=== PATIENT | female | born 2005 | race Caucasian/White ===

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

== ENCOUNTER 2025-02-19 13:06 | Emergency (ER) | payer OTHER, SELFPAY ==
[2025-02-19] VITALS (11 sets, daily range): BP systolic 106–127; BP diastolic 73–81; PULSE 83–96; RESP 16; TEMP 36.1; O2SAT 98–100; BMI 23.7
--- OUTSIDE RECORDS SUMMARY | 2025-02-19 13:09 | XMS_ITS | Clinical Summary ---
Author Organization [facility] Address [address] [place] [address] Care Team Providers Care Ham Curer Name Role Phone Yi Barboza APRN, JOEL Primary Care [place] Unavailable Source Comments You are receiving this document as you are listed as the primary care provider,follow-up provider, or the patient has been referred to you for consultation.This is in compliance with the Medicare and[facility] EHR Incentive Program,which states Providers who transition their patient to another setting of careor provider of care or refers their patient to another provider of care shouldprovide summary care record for each transition of care or referral. [facility] Allergies No known active allergies Medications OXcarbazepine (TRILEPTAL) 300 MG tablet Take 600 mg by mouth two times a day. 03/04/2022 Active HYDROcodone-andrea taminophen (NORCO) 5-325 MG tabletIndicatio ns:Pain due to bone fixation device, subsequent encounter (HRC) Take 1-2 Tablets by mouth every 6 hours as needed for Pain. 5 Tablet 04/07/2022 Active HYDROcodone-andrea taminophen (NORCO) 5-325 MG tabletIndicatio ns:Pain due to bone fixation device, subsequent encounter (HRC) Take 1-2 Tablets by mouth every 6 hours as needed for Pain. 5 Tablet 04/07/2022 Active Active Problems Problem Noted Date Diagnosed Date Postop check 04/30/2022 Pain in bone fixation device 03/31/2022 Closed displaced fracture of middle phalanx of right little finger 03/10/2022 Closed traumatic dislocation of proximal interphalangeal (PIP) joint of right little finger 03/10/2022 Social History Tobacco Use Types Packs/Day Years Used Date Smoking Tobacco: Never Smokeless Tobacco: Never Tobacco Cessation:Counseling Given: Not Answered Alcohol Use Standard Drinks/Week Comments Never 0 (1 standard drink = 0.6 oz pur e alcohol) Comments Unknown Sex and Gender Information Value Date Recorded Sex Assigned at Not on file Legal Sex Female 8:00 AM CDT Gender Identity Not on file Sexual Orientation Not on file Last Filed Vital Signs Vital Sign Reading Time Taken Comments Blood Pressure 102/59 03/17/2022 3:30 PM CDT Pulse 71 03/17/2022 3:30 PM CDT Temperature 36.7 C (98.1 F) 03/17/2022 3:17 PM CDT Respiratory Rate 16 03/17/2022 3:30 PM CDT Oxygen Saturation 95% 03/17/2022 3:30 PM CDT Inhaled Oxygen Concentration - - Weight 64.9 kg (143 lb) 03/17/2022 11:09 AM CDT Height 165.1 cm (5' 5) 03/17/2022 11:09 AM CDT Body Mass Index 23.8 03/17/2022 11:09 AM CDT Body Mass Index Percentile 80.03% 03/17/2022 11: 09 AM CDT Growth Chart: CDC (Girls, 2- 20 Years) Plan of Treatment Health Maintenance Due Date Last Done Comments Chlamydia 2005 Hep C Screening (Preventive Services) 2005 MenB Immunization Discussion 2005 HGB 2017 HIV Screening (Preventive Services) 2021 Adult Preventive Visit 12/05/2023 HepB Vaccine (1) 2024 COVID-19 Vaccine ( season) 2025 01/22/2021, 01/01/2021 Influenza Vaccine (#1) 2025 DTaP/Tdap/Td Vaccine (7 - Tdap) 09/01/2027 08/31/2017, 12/05/2009, 12/05/2009, Additional history exists Zoster/Shingles Vaccine (1 of 2) 12/05/2055 Hib Vaccine Aged Out 06/10/2006, 04/17, 03/02/2006 No longer eligible based on patient's age to complete this topic IPV (Polio) Vaccine Completed 08/31/2017, 06/10/2006, 05/07/2006, Additional history exists HPV Vaccine Completed 09/12/2018, 08/31/2017 HepA Vaccine Completed 09/12/2018, 08/31/2017 MCV4 Vaccine Completed 01/27/2022, 08/15, 08/31/2017 Pneumococcal Vaccine Aged Out No long er eligible based on patient's age to complete this topic Medical Devices Implanted Type Area [employer] Device Identifier Shelf Expiration Date Model / Serial / Lot K-Wire Gde .054mm [facility] - [id number] Implanted:Qty: 1 on 03/17/2022 by Garfield Thompson MD at [facility] Right: FINGER [employer] 07/08/2025 [id number] / 0 / [id number] [employer]gan .065 Dean - [id number] Implanted:Qty: 1 on 03/17/2022 by Garfield Thompson MD at [facility] Right: FING[employer] [id number] / [id number] / 0 Description:On end of wire o utside of finger Insurance [facility] [address] [address] EMERGENCY MEDICAL ASSISTANCE Advance Directives * Full Code (Latest Code Status on File) Date Activated Date Inactivated Comments 03/17/2022 12:21 PM 03/17/2022 5:45 PM Care Teams Ham Curer Relationship Specialty Start Date End Date Yi Barboza APRN, STAVE GRADER PCP - General Nurse Practitioner 02/16/22
--- OUTSIDE RECORDS SUMMARY | 2025-02-19 13:10 | XMS_ITS | Clinical Summary ---
Author Organization [facility] Address [address] [place] [id number] Care Team Providers Care Manufacturing Supervisor 2Nd Shift Name Role Phone Jacqueline Acosta MD Primary Care [place] [place] Allergies No known active allergies Medications OXcarbazepine (TRILEPTAL) 300 mg tablet Take 600 mg by mouth 2 times daily. 09/23/2021 Active Active Problems Problem Noted Date Diagnosed Date Recurrent major depressive disorder, in partial remission 11/22/2018 Generalized anxiety disorder 11/22/2018 Seizures 05/17/2016 Immunizations Immunization Administration Dates Next Due BCG Vaccine (Percutaneous) 01/15/2006 COVID-19 vaccine ([email or web address] Textbook Time NTSnapjoy 30mcg/0.3mL) LEVON JAQUEZ 01/22/2021,01/01/2021 Dtap Unspecified Formulation 12/05/2009, 12/26/2007,06/10/2006,05/07,03/02/2006 HPV 9 (Gardasil 9) 09/12/2018,08/31/2017 Hepatitis A (Peds) 09/12/2018,08/31/2017 Hepatitis B (Peds) 08/31/2017, 7,05/07/2006,03/02 Hib Conjugate, Unspecified 06/10/2006,05/07/2006 ,03/02/2006 Inactivated Polio Vaccine 08/31/2017,,05/07/2006,03/02 MENINGOCOCCAL VACCINE 2 VIAL [id number] (MENVEO) 08/31/2017 MMR 02/25/2017,05/23/2010 Tdap 08/31/2017 Tdap, Unspecified 12/05/2009, 8,06/10/2006,05/07,03/02/2006 Varicella Vaccine 11/30/2017,08/31/2017 Family History Medical History Relation Name Comments No Known Problems Father No Known Problems Mother Relation Name Status Comments Father Mother Social History Tobacco Use Types Packs/Day Years Used Date Smoking Tobacco: Never Smokeless Tobacco: Never Tobacco Cessation:Counseling Given: Yes Comments:no exposure Alcohol Use Standard Drinks/Week Comments No 0 (1 standard drink = 0.6 oz pur e alcohol) PHQ-2 Answer Date Recorded PHQ-2 TOTAL SCORE 3 10/14/2021 Social Connections Answer Date Recorded Frequency of Communication with Friends and Fami ly Not on file 10/14/2021 Comments No Sex and Gender Information Value Date Recorded Sex Assigned at Not on file Legal Sex Female 3:33 PM PERINATAL COORDINATOR Gender Identity Not on file Sexual Orientation Not on file Obstetrics History Para Term AB IAB SAB Ectopic Multiple Livin g Live Births 0 0 0 0 0 0 0 0 0 0 0 Last Filed Vital Signs Vital Sign Reading Time Taken Comments Blood Pressure 98/68 10/14/2021 2:01 PM CDT Pulse 80 10/14/2021 2:01 PM CDT Temperature 37.3 C (99.2 F) 10/05/2018 1:39 PM CDT Respiratory Rate - - Oxygen Saturation 98% 10/05/2018 1:39 PM CDT Inhaled Oxygen Concentration - - Weight 66.4 kg (146 lb 4.8 oz) 10/14/2021 2:01 P M CDT Height 153 cm (5' 0.24) 10/05/2018 1:39 PM CDT Body Mass Index - - Plan of Treatment Health Maintenance Due Date Last Done Comments Well Child Check for age 3-20 11/04/2008 HIV for age 15-65 2020 Depression screening for age 12+ 10/14/2022 10/14/2021, 05/01/2019, 03/31/2019, Additional history exists BMI (ht and wt on same day) for age 18+ 12/05/2023 Hepatitis C screening for age 18-79 12/05/2023 COVID-19 vaccine series (2024- season) 2025 01/22/2021, 01/01/2021 Influenza Vaccine (#1) 2025 Tetanus booster 09/01/2027 08/31/2017, 11/15, 12/26/2007, Additional history exists RSV vaccine for adults or (1 - 1-dose 75+ series) 2080 Hepatitis B series for 19+ Completed 08/31, 06/10/2006, 05/07/2006, Additional history exists Meningococcal series for age 11-21 Aged Out 08/31/2017 No longer eligible based on patient's age to complete this topic HPV series for age 9-45 Completed 09/12/2018, 08/31 Pneumococcal series for age 6-49 Aged Out No longer eligible based on patient's age to complete this topic Care Teams Manufacturing Supervisor 2Nd Shift Relationship Specialty Start Date End Date Jacqueline Acosta MD [address] [place] [id number] PCP - General Family Practice 10/14/21
--- NOTE | 2025-02-19 13:27 | ED_ITS ---
HPI - Seizure General Date Seen: 02/19/25 Chief Complaint: Seizure Stated Complaint: seizure Time Seen by Provider: 02/19/25 13:27 Source: patient, EMS and RN notes reviewed Mode of arrival: ambulatory Limitations: no limitations History of Present Illness HPI Narrative: Cj is a very pleasant 19-year-old female with a history of seizures starting at the age of 9, seizure free for the last 2 years who comes to the emergency room via EMS after having been found down in the bathroom having a seizure. Patient notes that she was at work at a [employer] office in [place] when she ?felt funny? and went to the bathroom. She does not remember anything after that until she woke up in the bathroom with a lot of people surrounding her. She did have blood on her shirt from biting her tongue on the right. Her mother is present. They wonder if this is increased stress from the job. She is not currently on any antiseizure medication. In fact, she took herself off of it in the last 2 years. Ironically she has a follow-up appointment with her neurologist tomorrow. Denies any head pain and neck pain. Did not have any incontinence. Denies chest pain shortness of breath. In regards to her ?aura? she notes that she just does not feel right. She cannot describe any particular change in her vision, hearing or sense of smell. Upon further discussion patient's mom notes that her daughter had ?flu? on Wednesday or 48 hours ago in which she had a cough. This has improved. She never had a fever. She did not test for COVID. She denies shortness of breath or chest pain. Seizure History: Yes Related Data Home Medications ?Medication ?Instructions ?Recorded ?Confirmed oxcarbazepine 300 mg tablet 300 mg PO BID 01/02/2211/08 Previous Rx's ?Medication ?Instructions ?Recorded ondansetron 8 mg disintegrating 8 mg PO TID PRN nausea and 09/22/22 tablet vomiting #10 tabs Allergies Allergy/AdvReac Type Severity Reaction Status Date / Time No Known Drug Allergies Allergy Unknown Unknown Uncoded 01/02/22 10:01 Review of Systems Status of ROS: Reports: 10 or more systems reviewed and unremarkable except as noted in History and below Narrative: Denies possibility of Const: Denies: fever or chills Eyes: Denies: change in vision or blurry vision ENMT: Denies: neck pain or nasal congestion Cardio: Denies: chest pain, swelling of feet/ankles or shortness of breath with exertion Resp: Reports: cough; Denies: shortness of breath GI: Denies: abdominal pain, nausea, vomiting or diarrhea : Denies: painful urination or urinary frequency Musculo: Denies: back pain, neck pain or extremity pain Neuro: Denies: headache, numbness in extremities, weakness in extremities or slurred speech PFSH [facility] Medical History Anxiety ?F41.9 - Anxiety disorder, unspecified (ICD-10) Seizures ?R56.9 - Unspecified convulsions (ICD-10) Family History Other Diabetes Social History Smoking Status: Never smoker Exam Narrative: Exam Narrative: Alert and oriented. Nontoxic in appearance. EOM is full and pupils equal round and reactive. Head is atraumatic normocephalic. Neck is supple. No midline cervical tenderness and range of motion is full. Heart with regular rate and rhythm and lungs are clear. Abdomen soft nontender. Pelvis stable. Palpation on extremities with no tenderness. Lower extremities without edema or erythema. Moving all extremities without difficulty. Const: Vital Signs, click to edit/add: Vital Signs - 24 hr 02/19/25 13:14 Temperature 97.0 F L Pulse Rate [Pulse Oximeter] 91 Respiratory Rate 16 Blood Pressure [Ri ght Upper Arm] 127/81 Pulse Oximetry 99 Oxygen Delivery Me thod Room Air Documenting provider has reviewed patient's vital signs: yes Course Course ED Course: Differential diagnosis includes but is not limited to seizure, arrhythmia, vasovagal affect, electrolyte disturbance, , UTI, COVID. Patient will have an IV placed. Labs will include CBC, comprehensive, urinalysis, hCG, drug screen, EKG. Will speak to her neurology group when these labs have been returned. Vital Signs Vital signs: Initial Vital Signs Temperature 97.0 F L 02/19/25 13:14 Temperature Source Temporal Artery Scan 02/19/25 13:14 Pulse Rate 91 02/19/25 13:14 Respiratory Rate 16 02/19/25 13:14 Blood Pressure 127/81 02/19/25 13:14 Blood Pressure Mean 96 02/19/25 13:14 Blood Pressure Position Sitting 02/19/25 13:14 Pulse Oximetry 99 02/19/25 13:14 Oxygen Delivery Method Room Air 02/19/25 13:14 Vital Signs Temperature 97.0 F L 02/19/25 13:14 Pulse Rate 91 02/19/25 13:14 Respiratory Rate 16 02/19/25 13:14 Blood Pressure 127/81 02/19/25 13:14 Pulse Oximetry 99 02/19/25 13:14 Oxygen Delivery Method Room Air 02/19/25 13:14 Temperature 97.0 F L 02/19/25 13:14 Pulse Rate 91 02/19/25 13:14 Respiratory Rate 16 02/19/25 13:14 Blood Pressure 127/81 02/19/25 13:14 Pulse Oximetry 99 02/19/25 13:14 Oxygen Delivery Method Room Air 02/19/25 13:14 MDM - Seizure MDM Narrative Medical decision making narrative: 1. Seizure-likely consequence of not using anti seizure medications. Had the pleasure of speaking to neurologist and patient is instructed to return to her dose of Trileptal 900 mg p.o. b.i.d.. She does a follow-up appointment with neurology this week that I heavily encouraged her to keep. Also at this time she should not be driving and she states that she is not. No evidence of underlying infection, cardiac arrhythmia or electrolyte abnormality. 2. Disposition-home at this time with mom. They both feel comfortable going home. In a review of laboratory values patient has a normal white count electrolyte panel with normal creatinine potassium and sodium and a negative COVID test. Urinalysis with no evidence of UTI and she has a negative test. Medical Records Attestation: I reviewed the patient's medical records. Lab Data Attestation: I reviewed the patient's lab results. Labs: Lab Results 02/19/25 02/19/25 Range/Units 13:47 13:55 WBC 5.49 (4.50-11.00) K/uL RBC 4.11 (4.00-5.20) m/uL Hgb 12.0 (12.0-16.0) gm/dL Hct 36.4 (33.0-51.0) % MCV 89 (80-100) fL MCH 29 (26-34) pg MCHC 33 (32-36) gm/dL RDW Coeff of [place] 12.7 (11.5-15.5) % Plt Count 214 (140-440) K/uL Neut % (Auto) 74.3 H (42.0-72.0) % Lymph % (Auto) 17.9 L (20-44) % [place] % (Auto) 6.9 (0.0-11.0) % Eos % (Auto) 0.2 (0.0-7.0) % Baso % (Auto) 0.5 (0.0-3.0) % Neut # (Auto) 4.10 (1.7-7.0) K/uL Lymph # (Auto) 1.00 (0.90-2.90) K/uL [place] # (Auto) 0.40 (0.00-0.90) K/UL Eos # (Auto) 0.01 (0.00-0.50) K/uL Baso # (Auto) 0.03 (0.00-0.30) K/uL Abs Immat Gran (auto) 0.01 (0.00-0.30) K/uL Imm/Tot Granulo (auto) 0.2 % Sodium 136 (135-149) mmol/L Potassium 4.0 (3.6-5.1) mmol/L Chloride 105 (96-114) mmol/L Carbon Dioxide 26 (20-32) mmol/L Anion Gap 5 L (7-15) mEq/L BUN 7 (5-24) mg/dL Creatinine 0.6 (0.6-1.2) mg/dL Estimated Creat Clear 124.75 Estimated GFR 133 ml/min Glucose 96 (60-115) mg/dL Calcium 9.3 (8.7-10.8) mg/dL Total Bilirubin 0.4 (0.1-1.5) mg/dL AST 37 H (12-35) U/L ALT 30 (4-35) U/L Alkaline Phosphatase 69 (40-150) U/L Total Protein 8.0 (6.0-8.3) g/dL Albumin 4.6 (3.3-5.0) g/dL Urine Color Yellow (Yellow) Urine Appearance Clear (Clear) Urine pH 6.0 (5.0-8.5) Ur Specific [place] 1.020 (1.000-1.030) Urine Protein Trace A (Negative) Urine Glucose (UA) Negative (Negative) Urine Ketones Negative (Negative) Urine Blood Trace-intact A (Negative) Urine Nitrite Negative (Negative) Urine Bilirubin Negative (Negative) Urine Urobilinogen 0.2 (0.2-1.0) Ur Leukocyte Esterase Negative (Negative) Urine RBC 0-2 (0-2) Urine WBC 0-2 (0-5) Ur Squamous Epith Cells Many A (None-Few) Urine Bacteria None (None) Urine HCG, Qual Negative (Negative) Urine Opiates Screen Negative (Negative) Ur Oxycodone Screen Negative (Negative) Urine Methadone Screen Negative (Negative) Ur Barbiturates Screen Negative (Negative) U Tricyclic Antidepress Negative (Negative) Ur Phencyclidine Scrn Negative (Negative) Ur Amphetamines Screen Negative (Negative) U Methamphetamines Scrn Negative (Negative) U Benzodiazepines Scrn Negative (Negative) Urine Cocaine Screen Negative (Negative) U Marijuana (THC) Screen POSITIVE A (Negative) Ur Drug Screen Comment See Note SARS-CoV-2 (PCR) Negative SARS-CoV-2 (Negative) ECG Data Attestation: I personally reviewed and interpreted this ECG as follows: ECG interpretation date: 02/19/25 Interpretation: EKG by my read shows sinus rhythm at a rate of 83. She does have T-wave inversions in V1 to 3 but no evidence of ischemia. WI intervals and QT intervals within normal limits. Discharge Plan Discharge Clinical Impression: Epileptic seizure Patient Disposition: Home w/ Parent or Adult Condition: Improved Additional Instructions: Restart your medication oxcarbamazepine 900 mg twice a day. Follow-up with your neurologist as previously scheduled Please do not drive at this time. Return to the emergency room for worsening symptoms. Prescriptions: No Action oxcarbazepine 300 mg tablet 300 mg PO BID ondansetron 8 mg tablet,disintegrating 8 mg PO TID PRN (Reason: nausea and vomiting) Qty: 10 0RF Follow Up/Referrals: Provider,Not a Local [Primary Care Provider, Family Practice] Stand Alone Forms: Good [employer]s Info Instructions
[2025-02-19 14:00] LABS: Hematocrit* 36.4 % (33.0-51.0); Hemoglobin* 12.0 gm/dL (12.0-16.0); Immature Granulocytes Abs Auto 0.01 K/uL (0.00-0.30); Immature Granulocytes Pct Auto 0.2 %; Mean Corpuscular HGB Conc 33 gm/dL (32-36); Mean Corpuscular Hemoglobin 29 pg (26-34); Mean Corpuscular Volume 89 fL (80-100); RDW Coefficient of Variation % 12.7 % (11.5-15.5); Red Blood Count* 4.11 m/uL (4.00-5.20); White Blood Count* 5.49 K/uL (4.50-11.00)
[2025-02-19 14:01] LABS: Lymphocytes Absolute Auto 1.00 K/uL (0.90-2.90); Slide Review Reflex No
[2025-02-19 14:11] LABS: Appearance Urine Clear (Clear)
[2025-02-19 14:12] LABS: Ur HCG Qualitative* Negative (Negative)
[2025-02-19 14:22] LABS: Albumin* 4.6 g/dL (3.3-5.0); Chloride* 105 mmol/L (96-114)
[2025-02-19 14:23] LABS: Potassium* 4.0 mmol/L (3.6-5.1); Sodium* 136 mmol/L (135-149)
[2025-02-19 14:25] LABS: Blood Urea Nitrogen* 7 mg/dL (5-24); Creatinine* 0.6 mg/dL (0.6-1.2); Est. Creatinine Clearance* 124.75; Estimated Glomerular Filt Rate 133 ml/min
[2025-02-19 14:26] LABS: Cannabinoid Screen Urine POSITIVE (Negative); Methamphetamines Screen Urine Negative (Negative); Tricyclic Antidepressant Urine Negative (Negative)
[2025-02-19 14:26] LABS: Alanine Aminotransferase* 30 U/L (4-35); Alkaline Phosphatase* 69 U/L (40-150); Anion Gap 5 mEq/L (7-15); Aspartate Amino Transferase* 37 U/L (12-35); Bilirubin Total* 0.4 mg/dL (0.1-1.5); Calcium* 9.3 mg/dL (8.7-10.8); Carbon Dioxide* 26 mmol/L (20-32); Glucose* 96 mg/dL (60-115); Total Protein* 8.0 g/dL (6.0-8.3)
[2025-02-19 14:41] LABS: SARS PCR* Negative SARS-CoV-2 (Negative)
== END 2025-02-19 15:36 | disposition home or self-care (01) ==
PROVIDERS: Emergency Provider Family Medicine
DX: G40.909 Epilepsy, unspecified, not intractable, without status epilepticus (principal); S01.512A Laceration without foreign body of oral cavity, initial encounter; Z91.148 Patient's other noncompliance with medication regimen for other reason
CPT/HCPCS: 36415; 80053; 80306; 81001; 81025; 85025; 87635; 93005; 99284; 99285